=== PATIENT | female | born 1990 | race Caucasian/White ===

== ENCOUNTER → 2020-07-25 09:30 | Outpatient (CLI) | payer MEDICAID, SELFPAY | PROVIDERS: Referring Provider Obstetrics & Gynecology; Visit Provider Obstetrics & Gynecology | DX: Z11.59 Encounter for screening for other viral diseases (principal) | CPT/HCPCS: 87635; C9803; U0003 ==

== ENCOUNTER 2020-07-30 09:30 | Inpatient (IN) | payer MEDICAID, SELFPAY ==
--- NOTE | 2020-07-24 12:20 | HP.PCM_ITS ---
History and Physical Date of Admission: 07/30/20 HPI: The patient is a 30 year old female presenting for pre-operative visit. She is scheduled for?, for?39 weeks , previous c/s on?07/30/2020. ??Procedure discussed along with risks, benefits and complications. ?Other alternatives discussed for management. Consent form signed??Yes.? PAST MEDICAL HISTORY PAST MEDICAL HISTORY Diagnosis Date ? PID (acute pelvic inflammatory disease) 04/2016 ? ? PAST SURGICAL HISTORY PAST SURGICAL HISTORY Procedure Laterality Date ? DELIVERY ONLY ? ? ? , low transverse ? ? CURRENT MEDICATIONS Current Outpatient Medications Medication Sig Dispense Refill ? ferrous sulfate 325 mg (65 mg iron) tablet Take 1 tablet by mouth every 48 hours. 15 tablet 1 ? vit [id number] (PRENATE MINI, FERR ASP GLYCIN,) 18-1-350 mg cap Take 1 capsule by mouth once daily. 30 capsule 11 ? No current facility-administered medications for this visit.? ? ALLERGIES:?Penicillin G and Pineapple ? PERSONAL HISTORY:? SOCIAL HISTORY Social History ? Tobacco Use ? Smoking status: Current Every Day Smoker ? ? Packs/day: 0.50 ? ? Types: Cigarettes ? ? Start date: 06/12/2012 ? Smokeless tobacco: Never Used Substance Use Topics ? Alcohol use: Not on file ? Drug use: Not on file ? FAMILY HISTORY:? FAMILY HISTORY History reviewed. No pertinent family history. ? REVIEW OF SYMPTOMS: GENERAL: denies fevers or chills ENDOCRINOLOGY: has not been on steroids Cardiology : denies palpitations or chest pain Respiratory: denies SOB or cough Hematology: denies history of prolonged bleeding or easy bruising or VTE Allergy: Denies history of personal or family history of allergy to anesthesia ? ? PHYSICAL EXAMINATION: ? VITALS:?Blood pressure 110/70, weight 237 lb (107.5 kg), last menstrual period 10/30/2019. ? GENERAL:??The patient is well nourished, well hydrated in no acute distress. ?, The patient is oriented to time, place, and person. NECK:?Supple. No lynphadenopathy, normal thyroid, no thyromegaly. LUNGS:?Clear to auscultation bilaterally. no wheezes, rhonchi or rales HEART:?Regular rate and rhythm, Normal heart sounds and No murmurs or gallops ABD- soft, nontender, gravid ? IMPRESSION:?Estimated Date of Delivery: 08/05/20?30 YOF G 2P1 w/ h/o previous c/s ? PLAN:???The risks/benefits/alternatives and personal involved for the planned?c- sectoin?were reviewed with the patient. Her questions were answered to her satisfaction and she desires to proceed. ?Consent was signed. ?I reviewed with her postop instructions and expectations. ? ? I have reviewed and updated past medical and surgical history, medications and allergies? This H&P was completed in my office on 07/24/2020
[2020-07-30] VITALS (15 sets, daily range): BP systolic 95–113; BP diastolic 58–73; PULSE 66–87; RESP 12–17; TEMP 36.2–37.1; O2SAT 95–100; BMI 37.0
[2020-07-30] MEDS: Lactated Ringers 1,000 ML 999 ML IV (10:15)
[2020-07-30 10:39] LABS: Absolute Lymphocyte Count 1.82 X10^3/uL (0.83-4.51); Basophil# 0.02 X10^3/uL; Basophil% 0.2 % (0-1); Eosinophil# 0.15 X10^3/uL; Eosinophils% 1.3 % (0-5); Hematocrit 31.8 % (37-47); Hemoglobin 10.6 g/dL (12.0-15.0); Lymphocyte # 1.82 X10^3/ul (4.0); Lymphocyte % 15.6 % (19-41); Mean Corp Hgb Conc 33.3 g/dL (32-36); Mean Corpuscular Hgb 30.1 pg (27.0-32.0); Mean Corpuscular Volume 90.3 fL (81-99); Mean Platelet Vol. 10.2 fl (6.2-12.0); Monocyte# 0.57 X10^3/uL; Monocyte% 4.9 % (0-10); NRBC Flagged by Analyzer 0 % (0-5); Neutrophil % 77.3 % (47-70); Platelet Count 246 K/mm3 (150-450); RBC Distribution Width CV 13.4 % (11.6-14.6); RBC Distribution Width SD 44.2 fl (35.1-43.9); Red Blood Count 3.52 M/mm3 (4.2-5.4); White Blood Count 11.6 K/mm3 (4.4-11.0)
[2020-07-30 10:59] LABS: Amphetamine Urine VISTA NEGATIVE (<1000 ng/mL); Barbiturate Urine VISTA NEGATIVE (< 200 ng/mL); Benzodiazepine Urine VISTA NEGATIVE (< 200 ng/mL); Cocaine Urine VISTA NEGATIVE (< 300 ng/mL); Ecstacy Urine VISTA NEGATIVE (< 500 ng/mL); Methadone Urine VISTA NEGATIVE (< 300 ng/mL); PCP Urine VISTA NEGATIVE (< 25 ng/mL); THC Urine VISTA POSITIVE (< 50 ng/mL); Vista UDS pH Range 8
[2020-07-30] MEDS: Acetaminophen 500 MG Tablet 1000 MG PO ×2 (11:01→18:03)
[2020-07-30] MEDS: Sodium Citrate/Citric Acid 30 ML UDC PO (11:38)
[2020-07-30] MEDS: Lactated Ringers 1,000 ML 150 ML IV (11:38)
[2020-07-30] MEDS: Cefazolin 2 GM in 0.9% Normal Saline 100 ML IV (11:38)
--- NOTE | 2020-07-30 13:17 | PCM.OPRPT ---
Report of Operation Surgery/Procedure Performed:: Repeat section Description of Surgical Findings:: Normal uterus & adnexa Delivery Classification: Scheduled Final CM: 08/05/20 Gestational age: 39 Weeks and 1 Days cardiology manager: Agustin Wells Type of Anesthesia:: Spinal Date of Procedure: 07/30/20 Pre-Operative Diagnosis: Prior section Post-Operative Diagnosis: Same Indications for : Repeat Elective Description of Procedure: Patient taken to OR where spinal anesthesia was placed. She was prepped and draped in the normal sterile fashion in a dorsal supine position with a leftward tilt. After ensuring adequacy of anesthesia the Pfannensteil skin incision was made and carried through to the underlying fascia with a scalpel. The fascia was incised in the midline and carried laterally with the Berrios scissors. The rectus muscles were in the midline and the peritoneum was entered bluntly. The bladder flap was dissected down carefully with the Metzenbaum scissors and blunt dissection. The uterus was incised in a transverse fashion and then incision extended with cephalocaudad traction. The fetus was vertex and the head was elevated to the uterine incision. With fundal pressure the head delivered. head was gently guided to allow delivery of anterior and posterior shoulders. No excess traction placed on head. Body delivered and 3VC clamped & cut in delayed fashion. Then the was handed off to the waiting RN. The placenta was delivered with gentle traction and fundal massage and the uterus was exteriorized and cleared of all clots and debris. The uterine incision was closed with 1 vicryl suture in a running locked fashion. The bovie was used to further obtain further hemostasis of the uterine incision. A second imbricating layer of monocryl was placed. The uterus was returned to the peritoneal cavity. The pelvis was irrigated & then cleared of all clots and debris. The uterine incision was reexamined and found to be hemostatic. Some jim was placed over the uterine incision due to the denuded areas. The fascia was closed with looped PDS suture in a running standard fashion. The subcutaneous tissue was examined & any bleeding bovie cauterized. The subcutaneous tissue was reapproximated with plain gut suture. The skin was closed in a subcuticular fashion by the COMPUTER TECHNICAL SPECIALIST with me present in the labor and delivery suite. I performed the remainder of the procedure w/ assistance. Amniotic Membrane Rupture Type: Spontaneous Amniotic Fluid Description: Clear Placenta Disposition: [facility] Fluids Replaced: 1,000ml Cord Entanglement: None Cord Vessel Description: 3 Vessels Esitmated Blood Loss (ml): 800ml Gender: Female - Star, weight = 7-6 (1 minute): 8 (5 minute): 9 Delayed cord clamping: Yes Antibiotic Given: Ancef 2 grams IV x1 Complications: None - Admit VTE Documentation VTE Present on Admission: No
[2020-07-30] MEDS: Oxytocin 30 units/NS 500 ml 30 UNITS/500 ML IV.SOLN 167 UNITS IV (13:30)
[2020-07-30] MEDS: Lactated Ringers 1,000 ML 100 ML IV (16:30)
[2020-07-30] MEDS: Ketorolac 30 MG/ML Syringe IV (19:00)
[2020-07-31] VITALS: BP 99/61; PULSE 87; RESP 16; TEMP 37; O2SAT 96
[2020-07-31] MEDS: Enoxaparin 40 MG/0.4 ML Syringe SC (00:08)
[2020-07-31] MEDS: Acetaminophen 500 MG Tablet 1000 MG PO ×4 (00:09→18:04)
[2020-07-31] MEDS: 0.9% Saline Lock 10 ML Syringe IV ×3 (00:12→12:33)
[2020-07-31] MEDS: Ketorolac 30 MG/ML Syringe IV ×3 (00:12→12:32)
[2020-07-31] MEDS: Lactated Ringers 1,000 ML 100 ML IV (00:13)
[2020-07-31 03:34] VITALS: BP 107/65; PULSE 76; RESP 16; TEMP 36.8
[2020-07-31 05:49] LABS: Hematocrit 30.8 % (37-47); Hemoglobin 10.1 g/dL (12.0-15.0); Mean Corp Hgb Conc 32.8 g/dL (32-36); Mean Corpuscular Hgb 29.9 pg (27.0-32.0); Mean Corpuscular Volume 91.1 fL (81-99); Mean Platelet Vol. 9.7 fl (6.2-12.0); Platelet Count 189 K/mm3 (150-450); RBC Distribution Width CV 13.2 % (11.6-14.6); RBC Distribution Width SD 43.5 fl (35.1-43.9); Red Blood Count 3.38 M/mm3 (4.2-5.4); White Blood Count 16.1 K/mm3 (4.4-11.0)
[2020-07-31 07:26] VITALS: BP 105/69; PULSE 84; RESP 16; TEMP 36.8
--- NOTE | 2020-07-31 08:39 | PCM.PN.OB ---
Subjective: Doing well per patient and nursing staff. Ambulating and taking PO without difficulty. Voiding and passing flatus. Pain controlled. Bottle and . Planning D/C home tomorrow. - Physical Exam Vitals/I&O's: Vital Signs Temp Pulse Resp BP Pulse Ox 98.3 F 84 16 105/69 96 07/31/20 07:26 07/31/20 07:26 07/31/20 07:26 07/31/20 07:26 07/31/20 00:00 Oxygen Delivery Method Room Air Weight: 244 lb 0.827 oz Body Mass Index (BMI) 37.0 Intake and Output for Last 24 Hours 07/29/20 07/30/20 07/31/20 23:59 23:59 23:59 Intake Total 4772.5 / 4772.5 771.67 / 771.67 Output Total 900 / 900 350 / 350 Balance 3872.5 / 3872.5 421.67 / 421.67 General: Alert, Oriented x3, Cooperative HEENT: Atraumatic, Normocephalic Neck: Trachea Midline Lungs: Clear to auscultation, Normal air movement Cardiovascular: Regular rate, No murmurs Abdomen: Bowel Sounds Present, Soft - fundus firm 2 below U. dressing dry and intact. Extremities: No edema Neurological: Deep Tendon Reflexes 2+/4 and Symmetrical Psych/Mental Status: Normal Affect, Appropriate Laboratory Results 07/30/20 10:00: Urine Opiates Screen NEGATIVE, Urine Methadone Screen NEGATIVE, Ur Barbiturates Screen NEGATIVE, Ur Phencyclidine Scrn NEGATIVE, Ur Amphetamines Screen NEGATIVE, U Methamphetamin-MDMA NEGATIVE, U Benzodiazepines Scrn NEGATIVE, Urine Cocaine Screen NEGATIVE, U Cannabinoids Screen POSITIVE H, Ur Drug Screen Comment 07/30/20 10:15: WBC 11.6 H, RBC 3.52 L, Hgb 10.6 L, Hct 31.8 L, MCV 90.3, MCH 30.1, MCHC 33.3, RDW Std Deviation 44.2 H, RDW Coeff of Jason 13.4, Plt Count 246, MPV 10.2, Immature Gran % (Auto) 0.700, Neut % (Auto) 77.3 H, Lymph % (Auto) 15.6 L, Marquette % (Auto) 4.9, Eos % (Auto) 1.3, Baso % (Auto) 0.2, Absolute Neuts (auto) 9.0 H, Absolute Lymphs (auto) 1.82, Nucleated RBC % 0 07/30/20 10:15: Blood Type O POSITIVE, Antibody Screen NEGATIVE 07/31/20 05:40: WBC 16.1 H, RBC 3.38 L, Hgb 10.1 L, Hct 30.8 L, MCV 91.1, MCH 29.9, MCHC 32.8, RDW Std Deviation 43.5, RDW Coeff of Jason 13.2, Plt Count 189, MPV 9.7 Current Medications Acetaminophen (Acetaminophen 500 Mg Tablet) 1,000 mg PO Q6 [facility] Last Admin: 07/31/20 05:50 Dose: 1,000 mg Documented by: Bisacodyl (Bisacodyl 10 Mg Suppository) 10 mg RECTAL UD PRN PRN Reason: If no BM Diphenhydramine HCl (Diphenhydramine 25 Mg Capsule) 25 mg PO Q6H PRN PRN PRN Reason: ITCHING Stop: 07/31/20 13:37 Enoxaparin Sodium (Enoxaparin 40 Mg/0.4 Ml Syringe) 40 mg SC DAILY [facility] Last Admin: 07/31/20 00:08 Dose: 40 mg Documented by: Hydrocortisone (Hydrocortisone 2.5% Crm) 1 applic TOPICAL TID PRN PRN; Protocol PRN Reason: Discomfort Ibuprofen (Ibuprofen 600 Mg Tablet) 600 mg PO Q6 [facility] Last Admin: 07/31/20 05:59 Dose: Not Given Documented by: Ketorolac Tromethamine (Ketorolac 30 Mg/Ml Syringe) 30 mg IV Q6H [facility] Stop: 07/31/20 13:01 Last Admin: 07/31/20 05:53 Dose: 30 mg Documented by: Methylergonovine Maleate (Methylergonovine 0.2 Mg/Ml Ampul) 0.2 mg IM X1 PRN PRN Reason: Uterine Atony Nalbuphine HCl (Nalbuphine 10 Mg/Ml Ampul) 5 mg IV Q3H PRN PRN PRN Reason: ITCHING Stop: 07/31/20 13:37 Naloxone HCl (Naloxone 0.4 Mg/Ml Syringe) 0.02 mg IV Q1M PRN PRN Reason: RR <10 and pt unresponsive Ondansetron HCl (Ondansetron 4 Mg/2 Ml Vial) 4 mg IV Q4H PRN PRN PRN Reason: Nausea Oxycodone HCl (Oxycodone 5 Mg Tablet) 5 - 10 mg PO Q4H PRN PRN PRN Reason: Pain Score 4-10 Prochlorperazine Edisylate (Prochlorperazine 10 Mg/2 Ml Vial) 10 mg IV Q6H PRN PRN PRN Reason: NAUSEA Senna/Docusate Sodium (Senna/Docusate Sodium 1 Tablet) 0 tablet PO DAILY [facility] Simethicone (Simethicone 80 Mg Tablet) 80 mg PO PCHS PRN PRN Reason: Indigestion/stomach pain Sodium Chloride (0.9% Saline Lock 10 Ml Syringe) 5 - 15 ml IV UD PRN PRN Reason: SALINE FLUSH Last Admin: 07/31/20 05:53 Dose: 10 ml Documented by: Medical Necessity - Tobacco Use Smoking Status: Current every day smoker Assessment/Plan All Active Problems Pelvic inflammatory disease (PID) (Acute) A:POD #1 section P: 1) Routine care 2) H&H stable 3) Vitals stable 4) Pain controlled 5) Planning D/C home tomorrow
[2020-07-31] MEDS: Senna/Docusate Sodium 1 Tablet PO (10:49)
[2020-07-31 12:40] VITALS: BP 114/73; PULSE 82; RESP 16; TEMP 37.2; O2SAT 97
--- NOTE | 2020-07-31 16:48 | CASEMGMT ---
Social Work Assessment Labor and Delivery Unit Patient Address: [address] [place] [address]., [address], [place] [address] Phone number: [phone] Date of Referral: 07/30/2020 Time of Referral: 1015; 1426 Referred By: Dr. James Edmonds Date of Intervention: 07/31/2020 Time of Intervention: 1515 Reason for Referral: Maternal history of substance use. History obtained from: Medical records and mother of baby (BRAYDEN) Ragini Gutiérrez; BRAYDEN's significant other, Christopehr Small, also present for part of social work intervention. Household composition: BRAYDEN currently lives with her significant other Christopher. Christopher reports this is a trailer which he has lived in for the last 8 years. Home situation is reported to be safe and adequate. Patient's parent/guardian status: BRAYDEN is a 30-year-old single female who now has 2 children. Father of baby is reported to be a Koko Medellin, age 33. BRAYDEN reports Koko is incarcerated for the next 2 to 4 years, so will have no involvement with the baby. BRAYDEN has an older son Loyda Gutiérrez (born 04/23/2011) who has been raised by MOB mother since the child was a few months old. BRAYDEN mother has since adopted this child, and BRAYDEN reports has had no contact with this child for a year or two. baby is Armani Medellin (born 07.30.2019). BRAYDEN reports she has been involved with her significant other, Christopher, for the last 8 to 9 months. BRAYDEN denies any form of abuse in the relationship with Christopher. Medical History: BRAYDEN is 2, para 1 now 2 after delivery of Edmondson. care started at the [facility] at 17 weeks. care record indicates this was a transfer of care, though does not indicate where prior treatment was received. Delivery was via planned . weighed 7 pounds 6 ounces at . Apgars 8 and 9 at 1 and 5 minutes of life respectively. Educational Status: BRAYDEN with the 12th grade education. BRAYDEN is reported to be able to read, write, and understand what is read. Financial Status: BRAYDEN is not currently working, but plans to seek employment in a few months. At this time BRAYDEN is financially supported by Christopher, who reports to work on cars. Infant Supplies: BRAYDEN and Christopher both report to have needed baby supplies for the infant including a bassinet, car seat, diapers, clothing, and wipes. BRAYDEN is planning to breast-feed, but may supplement with formula. Christopher reports to have ordered 2 large containers of Similac, soy formula, for the baby. Childcare/Caregiver(s): BRAYDEN will be the primary caregiver of the baby. BRAYDEN reports her grandmother or a friend's mother will provide childcare when BRAYDEN does go back to work. Transportation: Christopher reports to have a car and BRAYDEN reports to have tram driver's license. Both deny any concerns or issues with transportation. Programs/Agencies Involved: BRAYDEN has medical and food assistance through [facility] job and family services. Reports to be active with [facility]. Reports to be active with a counselor named Jose Cruz through [employer]. BRAYDEN declined referral to help me grow or early [employer] at this time, but accepted information on programs. Children Services/Legal Issues: BRAYDEN denies any type of children services history. MOB reports children services may be involved for Christopher's 5-year-old daughter named Dayanna. MOB reports there are accusations made that Christopher was using drugs, when in reality it was just marijuana which Christopher received via his medical marijuana card. BRAYDEN reports she got in trouble with the law the end of 2018 related to methamphetamines found under the MOB seat. BRAYDEN reports her charges were dropped down from felony to misdemeanor, and is now involved with [facility] as a result. Behavioral Health Issues: Mental Health History: BRAYDEN reports a history of depression and to have been treated on and off with medications through the years. BRAYDEN reports she was off BuSpar for a little while during this . BRAYDEN reports she ran out, and had difficulty with transportation nor did she have a primary care doctor to continue filling the medication. BRAYDEN reports the initial prescription was via her [facility]. Noted in the care record on the visit dated April 17, that BRAYDEN voiced a desire to take the BuSpar as BRAYDEN tried one of her sisters and found the medication to be helpful. BRAYDEN denies any history of suicidal ideation, intent, planning, or action. No voiced ideations for harm to others either. Substance Use History: BRAYDEN reports a history of alcohol use issues, but reports it has been quite sometime since that has been a problem. Denies alcohol usage during this . Reports history of cocaine use as a teenager, but nothing during this . Reports history of methamphetamine use, with last use sometime in September 2019. BRAYDEN is uncertain of her exact sober date from this drug. MOB endorses use of marijuana daily during this . Chart indicates the MOB will use at least 2 times a day. BRAYDEN admitted to this speech writer to using marijuana multiple times a day. MOB reports marijuana use during related to morning sickness which was even occurring up until about 3 weeks ago, and then still occurred intermittently starting 3 weeks ago. MOB denies history of other illicit drug use such as heroin, fentanyl, or any type of prescription pills. Family History: MOB sister and father with a history of depression. Drug Screens: Maternal drug screens positive 02/27/2020 and at time of delivery on 07/30/2020. Baby's urine drug screen is positive for marijuana at time of delivery. Meconium is still pending as baby has not yet stooled at time of assessment. Family/Social Stressors: MOB indicates stress from Christopher's mother making accusations about Christopher using drugs, prompting Christopher in not being able to see his daughter. MOB reports Christopher is fighting this. BRAYDEN engaged with counseling for substance use and did have some legal issues of little less than a year ago related to drugs. BRAYDEN has not been able to talk to her older son in about a year or 2. Support Systems: MOB reports that Christopher is a support person. Additional support from MOB grandmother Celestina Gutiérerz and MOB sister Magalis Solis. BRAYDEN reports to have a couple of good friends. MOB reports her sister would be the primary emotional support when BRAYDEN is having a bad day. Depression/Shaken Baby/Safe Sleeping MOB and Christopher both educated to shaken baby prevention and safe sleeping. Touched on depression and anxiety with both MOB and Christopher, and continued conversation after Christopher left the room. [facility] depression screen completed with MOB and score was a 2, falling below the threshold for current depression anxiety. Broached risk factors with MOB, and reinforced the importance of seeking help and support. MOB reports if she starts to become isolative, withdrawn, or lack of motivation will call her counselor Jose Cruz for help and support related to depressive symptoms. ASSESSMENT: Met with MOB and significant other Christopher in the room. MOB holding the baby bundled up in a fluffy blanket. Baby sleeping during social work visit. This speech writer had received report from nursing staff that MOB has been holding the baby all day, and has not really slept. This speech writer encouraged MOB to try to get some sleep and place the baby in the crib while the baby is sleeping. BRAYDEN and Christopher both reported that baby cried every time the baby was removed from MOB yesterday, but that the baby seems to be getting better today. MOB reports belief that by this evening MOB will be able to get some sleep. Encouraged mom to try to rest while in the hospital, as it would be better to have some of that caught up on before going home to take care of the baby. Christopher reports after the baby is a week or 2 old he will be more willing to be hands-on with the baby, as at that time the baby will have a little bit better neck support. Christopher reports plan to be supportive to MOB in other ways, such as getting MOB food. MOB reports to have needed supplies to care for the baby, and access to support if needed. MOB reports to feel her mood is stable and that an antidepressant is not needed. MOB reports plan to continue with her counselor Jose Cruz, and verbally agrees that if depressive symptoms arise or worsen will talk with counselor about this. Addressed with MOB of need to call children services relating to infant's substance exposure in utero. MOB accepted this information without outward distress. Allowed MOB opportunity to ask questions. Safe Plan of Care for related to substance use: MOB reports possibility of continued marijuana usage after discharge home. Addressed safe plan of care for if this is the case, however did encourage abstinence. BRAYDEN reports that neither she nor Christopher would use marijuana around the baby. This speech writer also encouraged that at least 1 caregiver not be under the influence of substances while caring for the baby. MOB also reported that we will attempt to reduce use as another factor in the safe plan of care for . This speech writer educated MOB that it is not recommended to provide breast milk to baby while using marijuana. PLAN: Social work will follow up with MOB on 08/01/2020 provide additional resources for home-going. BRAYDEN has been given a [facility] resource list, and a packet on mood and anxiety disorders. Plan to call [facility] children services regarding to substance exposure to infant in utero. -STEPHANI Caldwell, SPICE CLEANER *Information documented in this assessment generated with [employer]*
--- NOTE | 2020-07-31 17:41 | CASEMGMT ---
Social Work Labor and Delivery Unit Reason for intervention: Referral to [facility] ([facility]). Kemi Amador, , extension [phone]. Summary: Referral made due to substance exposed in utero. Provided report to Kemi Aamdor including brief maternal and histories. Reported active supports and agencies currently involved with MOB. Kemi made aware of positive drug screens for both mom and baby. Assessment: Per conversation with Kemi at children services, it is anticipated that children services will want to make contact with and will be at the hospital rather than at home. He anticipates somebody from children services will make contact with this sba underwriter in the morning on 08/01/2020. MOB was aware of referral being made. Plan: Anticipate baby home with MOB at time of discharge. Social work still needs to see MOB again on 08/01/2020. Children services will be opening the case and following this family in the community. -STEPHANI Caldwell, GILBERTO *Information documented in this note generated via [employer] system*
[2020-07-31] MEDS: Ibuprofen 600 MG Tablet PO ×2 (17:51→23:48)
[2020-07-31] MEDS: oxyCODONE 5 MG Tablet PO (18:57)
[2020-07-31 20:05] VITALS: BP 110/74; PULSE 77; RESP 18; TEMP 37.2
[2020-08-01] MEDS: Acetaminophen 500 MG Tablet 1000 MG PO ×3 (00:11→12:53)
[2020-08-01 01:45] VITALS: BP 100/79; PULSE 79; RESP 18; TEMP 36.3
[2020-08-01] MEDS: Ibuprofen 600 MG Tablet PO ×2 (06:21→12:19)
[2020-08-01 08:35] VITALS: BP 112/62; PULSE 83; RESP 18; TEMP 36.3
--- NOTE | 2020-08-01 09:24 | PCM.PN.OB ---
Subjective: Doing well. She desires to go home. Ambulating voiding without difficulty. She denies lightheadedness, dizziness, chest pain. Tolerating regular diet without nausea or vomiting. No leg pain. She is breast-feeding without complaints. - Physical Exam Vitals/I&O's: Vital Signs Temp Pulse Resp BP Pulse Ox 97.3 F L 79 18 100/79 97 08/01/20 01:45 08/01/20 01:45 08/01/20 01:45 08/01/20 01:45 07/31/20 12:40 Oxygen Delivery Method Room Air Weight: 244 lb 0.827 oz Body Mass Index (BMI) 37.0 Intake and Output for Last 24 Hours 07/30/20 07/31/20 08/01/20 23:59 23:59 23:59 Intake Total 4772.5 / 4772.5 771.67 / 771.67 Output Total 900 / 900 350 / 350 Balance 3872.5 / 3872.5 421.67 / 421.67 General: Alert, No apparent distress HEENT: Atraumatic Abdomen: Soft, Non Tender, Non-Distended, - - FF@U Extremities: No edema, No Calf Tenderness Skin: No rashes Neurological: Neuro grossly intact Psych/Mental Status: Normal Affect, Appropriate Current Medications Acetaminophen (Acetaminophen 500 Mg Tablet) 1,000 mg PO Q6 [facility] Last Admin: 08/01/20 06:21 Dose: 1,000 mg Documented by: Bisacodyl (Bisacodyl 10 Mg Suppository) 10 mg RECTAL UD PRN PRN Reason: If no BM Enoxaparin Sodium (Enoxaparin 40 Mg/0.4 Ml Syringe) 40 mg SC DAILY [facility] Last Admin: 07/31/20 00:08 Dose: 40 mg Documented by: Hydrocortisone (Hydrocortisone 2.5% Crm) 1 applic TOPICAL TID PRN PRN; Protocol PRN Reason: Discomfort Ibuprofen (Ibuprofen 600 Mg Tablet) 600 mg PO Q6 [facility] Last Admin: 08/01/20 06:21 Dose: 600 mg Documented by: Methylergonovine Maleate (Methylergonovine 0.2 Mg/Ml Ampul) 0.2 mg IM X1 PRN PRN Reason: Uterine Atony Naloxone HCl (Naloxone 0.4 Mg/Ml Syringe) 0.02 mg IV Q1M PRN PRN Reason: RR <10 and pt unresponsive Ondansetron HCl (Ondansetron 4 Mg/2 Ml Vial) 4 mg IV Q4H PRN PRN PRN Reason: Nausea Oxycodone HCl (Oxycodone 5 Mg Tablet) 5 - 10 mg PO Q4H PRN PRN PRN Reason: Pain Score 4-10 Last Admin: 07/31/20 18:57 Dose: 5 mg Documented by: Prochlorperazine Edisylate (Prochlorperazine 10 Mg/2 Ml Vial) 10 mg IV Q6H PRN PRN PRN Reason: NAUSEA Senna/Docusate Sodium (Senna/Docusate Sodium 1 Tablet) 0 tablet PO DAILY [facility] Last Admin: 07/31/20 10:49 Dose: 1 tablet Documented by: Simethicone (Simethicone 80 Mg Tablet) 80 mg PO PCHS PRN PRN Reason: Indigestion/stomach pain Last Admin: 07/31/20 17:59 Dose: 80 mg Documented by: Sodium Chloride (0.9% Saline Lock 10 Ml Syringe) 5 - 15 ml IV UD PRN PRN Reason: SALINE FLUSH Last Admin: 07/31/20 12:33 Dose: 10 ml Documented by: Medical Necessity - Tobacco Use Smoking Status: Current every day smoker Assessment/Plan All Active Problems Pelvic inflammatory disease (PID) (Acute) POD#2 C/S - HDS and doing well - - Dispo: Discharge instructions reviewed. D/c home today
--- NOTE | 2020-08-01 09:29 | DCINST_ITS ---
Discharge Diet: No Restrictions Discharge Activity: May not drive while taking narcotic pain medications., May Shower May resume sexual activity in: 6 weeks Ice area for (Minutes): 15 Weight Bearing Status: Weight bearing as tolerated Lifting Restrictions: Nothing heavier than baby Call your doctor if your incision/area has: Sudden Increased Bleeding, Increased Pain/ Swelling, Increased Redness, Foul Smelling Discharge, Swelling at the incision site Call your doctor if you observe: Fever of 101 or Higher, Inability to urinate, Inability to have a bowel movement, Using more than one pad per hour, Shortness of breath, Dizziness, Fainting spells, Swelling in the ankles, Chest pain, Increased palpitations (irregular heartbeat), Calf discomfort, Uncontrolled pain Suture Line Care: Avoid Pulling/Pushing, Avoid Pinching/Bending Remove Dressing in (days):: 2 Cleanse incision/area with: Soap & Water Additional Instructions: If you experience any of the following, contact your healthcare provider. * Bleeding that soaks a pad every hour for 2 hours * Fever 100.4 or higher * Unrelieved incision or abdominal pain * Swelling, redness, discharge or bleeding from your incision or episiotomy site * Your incision begins to separate * Problems urinating (including inability to urinate or burning while urinating). * Visual changes * Severe headache * Flu-like symptoms * Pain or redness in one of both of your breasts * Pain, warmth, tenderness or swelling in your legs, especially the calf area * Frequent nausea and vomiting * Symptoms of depression or anxiety If you experience any of the following, call 911 or go to the nearest Emergency Room. * Chest pain * Problems breathing * Seizure activity * Partial or complete paralysis of a body part, slurred speech, weakness or drooping of the face, or a sudden inability to walk or hold your balance Allergies/Adverse Reactions: Allergies Penicillins Allergy (Verified 09/23/16 06:00) Hives pineapple Adverse Reaction (Verified 09/23/16 06:00) Nausea/Vom/Diarrhea Medications to take at Discharge Ferrous Sulfate [Iron] 325 mg PO QODAY 07/30/20 Pnv No.95/Ferrous Fum/Folic AC [ Multivitamin Tablet] 1 ea PO DAILY 07/30/20 Docusate Sodium [Colace] 100 mg PO BID PRN PRN #60 cap 08/01/20 Ibuprofen [Motrin] 600 mg PO Q6H PRN PRN #30 tab 08/01/20 The following prescriptions were given: Docusate Sodium [Colace] 100 mg PO BID PRN PRN #60 cap PRN Reason: Constipation Transmission Status: Pending to [facility] Ibuprofen [Motrin] 600 mg PO Q6H PRN PRN #30 tab PRN Reason: Pain Score 6-10 Transmission Status: Pending to [facility] Follow-Up: Call to make an appointment with your doctor for an incision check in 1-2 weeks. You will also need a 6 week post- follow up appointment. Test results from this visit will be discussed in further detail at your follow- up appointment, if applicable. Please Follow Up With: James Edmonds MD When: 1 week for incision check and 6 weeks for check Primary Care Physician: Care Physician,No Primary [Primary Care Provider] -
[2020-08-01] MEDS: Senna/Docusate Sodium 1 Tablet PO (10:06)
[2020-08-01] MEDS: Enoxaparin 40 MG/0.4 ML Syringe SC (10:06)
--- NOTE | 2020-08-01 10:16 | NURSING ---
RN instructed pt on need to schedule follow up blend technician appt. Pt states I called, but they said I couldn't schedule until hospital sends paperwork. RN instructed pt to call again and offered assist if trouble scheduling. RN remained in room while pt completed phone call. Pt states appointment made with Diane Garcia for 08/02/2020 at 10:45 am. Appointment time date and time written on discharge checklist.
--- NOTE | 2020-08-01 11:40 | CASEMGMT ---
Social Work Labor and Delivery Unit Received call from Rashida Plunkett at [facility] ([facility]) who reports has been assigned to this family. Rashida plans to come to hospital to meet with patient/mother of baby prior to discharge, likely around 1130 today. Updated nursing staff and youth program director. Met with MOB and significant other Christopher Small in the room. MOB up and moving around the room and changing the baby's diaper. MOB handled baby appropriately and talked to baby in a loving way during the diaper change. MOB reports was able to get some sleep last night and feel more rested. MOB reports trying to focus on breast feeding and that this is going well overall. Christopher reports the formula is just a crutch to be used if breast feeding is not working out. MOB stated to have a pediatric follow up for the baby tomorrow, 08.02.2020 at the [facility] pediatric office. This financial underwriter updated MOB, with permission that okay to talk in front of Christopher, and let MOB know that [facility] will be coming to hospital to meet with MOB, prior to leaving hospital. No voiced concerns to this financial underwriter. Through conversation with MOB and Christopher this date, Christopher did mention that he has weekly visits on with daughter as children services but sometimes has to to virtual visits due to COVID status, as Christopher's daughter is placed in [facility]. Provided MOB with list of area primary care doctors as well as brochure on Community Action programs, highlighting the [employer] program as a program to provide support for new parents in transitioning with children, as well as to promotoe learning at an early age. No other services are requested or indicated at this time. Updated nursing that just awaiting for CS to see MOB. Plan: Await CS arrival to unit to see MOB, and then anticipate MOB and baby to discharge home with CS following in the community. MOB has been provided with community resource lists and information on mood and anxiety disorders. MOB is also established already with an outpatient counselor. -JIM Caldwell, COMMERCIAL ARTIST
[2020-08-01 13:11] VITALS: BP 128/85; PULSE 83; RESP 18; TEMP 36.6
--- NOTE | 2020-09-11 10:21 | CASEMGMT ---
Social Work Labor and Delivery unit Received call from Rashida Ann from [facility] ([phone], extension [phone]). Rashida is the assigned facility maintenance worker to the case that was opened as a result of this narrative writer's referral as a mandated liquor blender. Rashida had clarifying questions about referral information, which this narrative writer provided. No other services requested or indicated. -JIM Caldwell, ENAMEL FINISHER
== END 2020-08-01 13:25 | disposition home or self-care (01) | DRG 540 ==
PROVIDERS: Admitting Provider Obstetrics & Gynecology; Referring Provider Obstetrics & Gynecology; Visit Provider Obstetrics & Gynecology
PROC: 10D00Z1 Extraction of Products of Conception, Low, Open Approach (ICD-10-PCS; CPT 59514; principal; 2020-07-30 11:45)
DX: O34.211 Maternal care for low transverse scar from previous cesarean delivery (principal); Z37.0 Single live birth; Z3A.39 39 weeks gestation of pregnancy; F17.200 Nicotine dependence, unspecified, uncomplicated; O99.334 Smoking (tobacco) complicating childbirth
CPT/HCPCS: 80307; 85025; 85027; 86850; 86900; 86901; 99218; 99251; J7120; A4216; G0378; G0463; J2405